=== PATIENT | male | born 1965 | race Caucasian/White ===

== ENCOUNTER 2018-01-12 16:53 | Inpatient (IN) | payer OTHER ==
[~2018-01-12] VITALS: Ht 177.8 cm; Wt 113.4 kg
[2018-01-19] MEDS ORDERED: METFORMIN HCL1000 MG PO (09:32)
[2018-01-19] MEDS ORDERED: CLINDAMYCIN HC300 MG PO (09:33)
[2018-01-19] MEDS ORDERED: ACIDOPHILUS1 EAC3 PO (09:34)
[2018-01-19] MEDS ORDERED: OMEPRAZOLE40 MG PO (09:35)
[2018-01-22] MEDS ORDERED: DEPAKOTE ER500 MG PO (09:44)
[2018-01-22] MEDS ORDERED: BUSPAR PO (09:45)
== END 2018-01-19 11:47 | disposition home or self-care (01) | DRG 154 ==
LOC: ER 16:53 → MEDJ 21:21 → SEC-K 21:21 → MEDJ 23:32
PROC: 09JK8ZZ Inspection of Nasal Mucosa and Soft Tissue, Via Natural or Artificial Opening Endoscopic (ICD-10-PCS; principal; 2018-01-13)
PROC: BW40ZZZ Ultrasonography of Abdomen (ICD-10-PCS; 2018-01-15)
PROC: BW2FY0Z Computerized Tomography (CT Scan) of Neck using Other Contrast, Unenhanced and Enhanced (ICD-10-PCS; 2018-01-16)
DX: K11.5 Sialolithiasis (principal); A41.9 Sepsis, unspecified organism; K12.2 Cellulitis and abscess of mouth; N17.8 Other acute kidney failure; B37.0 Candidal stomatitis; E11.65 Type 2 diabetes mellitus with hyperglycemia; K11.21 Acute sialoadenitis
CPT/HCPCS: 70498

== ENCOUNTER 2018-01-26 05:35 | Inpatient (IN) | payer OTHER ==
[~2018-01-26] VITALS: Ht 175.3 cm; Wt 106.6 kg
[~2018-01-26 05:35] MED LIST: ACIDOPHILUS1 EAC3 PO; BUSPAR PO; CLINDAMYCIN HC300 MG PO; DEPAKOTE ER500 MG PO; METFORMIN HCL1000 MG PO; OMEPRAZOLE40 MG PO
[2018-01-28] MEDS ORDERED: BUSPIRONE HCL10 MG PO (15:33)
[2018-02-08] MEDS ORDERED: LEVAQUIN750 MG PO (08:14)
[2018-02-08] MEDS ORDERED: RESTORA CAPSUL1 EACH PO (08:16)
== END 2018-02-08 11:25 | disposition home or self-care (01) | DRG 139 ==
LOC: CIR.AMB 05:35 → SURH 13:35 → O/R 13:35 → SURH 13:41 → CIR.AMB 15:15 → SURH 02-08 11:25
PROVIDERS: Otolaryngology
PROC: 0J950ZX Drainage of Left Neck Subcutaneous Tissue and Fascia, Open Approach, Diagnostic (ICD-10-PCS; 2018-01-26)
PROC: 8E0ZXY6 Isolation (ICD-10-PCS; 2018-01-26)
PROC: 0CBH0ZX Excision of Left Submaxillary Gland, Open Approach, Diagnostic (ICD-10-PCS; principal; 2018-01-26 07:00)
PROC: BW2FZZZ Computerized Tomography (CT Scan) of Neck (ICD-10-PCS; 2018-02-03)
PROC: 02HV33Z Insertion of Infusion Device into Superior Vena Cava, Percutaneous Approach (ICD-10-PCS; 2018-02-04)
PROC: 0J950ZX Drainage of Left Neck Subcutaneous Tissue and Fascia, Open Approach, Diagnostic (ICD-10-PCS; 2018-02-05)
PROC: 0CCH0ZZ Extirpation of Matter from Left Submaxillary Gland, Open Approach (ICD-10-PCS; 2018-02-05)
DX: K11.5 Sialolithiasis (principal); A41.9 Sepsis, unspecified organism; L02.11 Cutaneous abscess of neck; L03.221 Cellulitis of neck; K11.23 Chronic sialoadenitis; E11.65 Type 2 diabetes mellitus with hyperglycemia; B95.4 Other streptococcus as the cause of diseases classified elsewhere